=== PATIENT | female | born 1975 | race Caucasian/White ===

== ENCOUNTER 2018-02-23 16:12 | Emergency (ER) | payer OTHER ==
[~2018-02-23] VITALS: Ht 154.9 cm; Wt 86.2 kg
[2018-02-23 16:26] LABS: URINE BILIRUBIN NEGATIVE (Negative); URINE BLOOD 3+ (Negative); URINE CLARITY CLEAR; URINE COLOR YELLOW; URINE GLUCOSE-RANDOM* NEGATIVE (Negative); URINE KETONES NEGATIVE (Negative); URINE NITRITE-REFLEX NEGATIVE (Negative); URINE PROTEIN (DIPSTICK) NEGATIVE (Negative); URINE SPECIFIC GRAVITY 1.015 (1.005-1.035); URINE UROBILINOGEN 0.2 E.U./dl (0.2-1.0)
[2018-02-23 16:27] LABS: URINE LEUKOCYTES-REFLEX 1+ (Negative)
[2018-02-23 16:36] LABS: BACTERIA-REFLEX 1-9 Few /HPF (None Seen); CASTS None Seen /LPF (None Seen); CRYSTALS None Seen /LPF (None Seen); SQUAMOUS 0-3 Few /LPF (0-3); URINE RBC >20 Many /HPF (0-2); URINE WBC-REFLEX 0-5 Rare /HPF (0-5)
[2018-02-23 16:52] LABS: ABSOLUTE NEUTROPHILS 6.9 thou/uL (1.4-8.2); BASOPHILS 0.5 % (0.0-2.0); EOSINOPHILS 1.1 % (0.0-3.0); HEMATOCRIT 42.9 % (37.0-47.0); HEMOGLOBIN 14.7 gm/dL (12.0-15.0); LYMPHOCYTES 20.3 % (24.0-44.0); MCH 28.5 pg (26.0-34.0); MCHC 34.3 g/dL (28.0-37.0); MCV 83.1 fL (80.0-100.0); MONOCYTES 5.1 % (1.0-8.0); PLATELET COUNT 321 thou/uL (150-400); RBC 5.16 mil/uL (4.20-5.00); RDW 15.1 % (10.5-14.5); WBC 9.5 thou/uL (4.0-11.0)
[2018-02-23 17:02] LABS: CALCIUM 10.1 mg/dL (8.5-10.1); POTASSIUM 3.6 mmol/L (3.5-5.1)
[2018-02-23 17:07] LABS: ALBUMIN 4.2 g/dL (3.4-5.0); TOTAL BILIRUBIN 0.4 mg/dL (<0.1-1.0); TOTAL PROTEIN 8.5 g/dL (6.4-8.2)
[2018-02-23 20:10] VITALS: BP 117/77
[2018-02-23] MEDS ORDERED: MACROBID 100 M100 M1 PO (20:17)
[2018-02-23] MEDS ORDERED: LEVSIN0.125 MG PO (20:17)
[2018-02-23] MEDS ORDERED: ONDANSETRON HCL4 M2 PO (20:24)
== END 2018-02-23 20:34 | disposition home or self-care (01) ==
LOC: ER 16:12
PROVIDERS: Physician Assistant
DX: N39.0 Urinary tract infection, site not specified (principal); R11.2 Nausea with vomiting, unspecified; R19.7 Diarrhea, unspecified; Z87.19 Personal history of other diseases of the digestive system; F17.210 Nicotine dependence, cigarettes, uncomplicated; Z88.0 Allergy status to penicillin; Z88.2 Allergy status to sulfonamides

== ENCOUNTER 2018-04-12 19:59 | Emergency (ER) | payer OTHER ==
[~2018-04-12] VITALS: Ht 154.9 cm; Wt 81.7 kg
[~2018-04-12 19:59] MED LIST: LEVSIN0.125 MG PO; MACROBID 100 M100 M1 PO; ONDANSETRON HCL4 M2 PO
[2018-04-12 20:44] LABS: ABSOLUTE NEUTROPHILS 5.9 thou/uL (1.4-8.2); BASOPHILS 0.4 % (0.0-2.0); EOSINOPHILS 0.7 % (0.0-3.0); HEMATOCRIT 42.8 % (37.0-47.0); HEMOGLOBIN 14.6 gm/dL (12.0-15.0); LYMPHOCYTES 20.1 % (24.0-44.0); MCH 28.9 pg (26.0-34.0); MCHC 34.1 g/dL (28.0-37.0); MCV 84.9 fL (80.0-100.0); PLATELET COUNT 322 thou/uL (150-400); POLYS 72.8 % (36.0-66.0); RBC 5.04 mil/uL (4.20-5.00); RDW 13.7 % (10.5-14.5); WBC 8.1 thou/uL (4.0-11.0)
[2018-04-12 20:52] LABS: CALCIUM 9.5 mg/dL (8.5-10.1); CREATININE 0.8 mg/dL (0.6-1.0); POTASSIUM 3.6 mmol/L (3.5-5.1)
[2018-04-12 20:57] LABS: ALBUMIN 4.2 g/dL (3.4-5.0); TOTAL BILIRUBIN 0.2 mg/dL (<0.1-1.0); TOTAL PROTEIN 8.2 g/dL (6.4-8.2)
[2018-04-12] MEDS ORDERED: SENNA8.6 MG PO (22:37)
[2018-04-12] MEDS ORDERED: FOLEY CATHETER1 EAC1 URETHRAL (22:37)
[2018-04-12] MEDS ORDERED: LEVSIN-SL0.125 MG BUCCAL (22:37)
[2018-04-13 00:09] VITALS: BP 128/66
== END 2018-04-13 00:11 | disposition home or self-care (01) ==
LOC: ER 19:59
PROVIDERS: Physician Assistant
DX: K59.00 Constipation, unspecified (principal); F17.210 Nicotine dependence, cigarettes, uncomplicated; Z88.0 Allergy status to penicillin; Z88.2 Allergy status to sulfonamides